=== PATIENT | male | born 1985 | race Caucasian/White ===

== ENCOUNTER 2019-05-26 01:00 | Day surgery (SDC) | payer OTHER, SELFPAY ==
[2019-05-25 09:42] VITALS: BMI 27.1
[2019-05-26] VITALS (9 sets, daily range): BP systolic 132–151; BP diastolic 78–97; PULSE 82–103; RESP 10–20; TEMP 36.1–37.4; O2SAT 96–100
--- NOTE | 2019-05-26 10:04 | WPDANESEPP ---
Anes - Eval Pre Procedure Procedure: Operation Date: 05/26/19 12:30 Proposed Procedures p Left Radical Orchiectomy, Inguinal Approach - Zachary Coleman MD Date/Time: 05/26/19 10:04 Pre Op Diagnosis: Testicular Mass Patient Data Age: 33 Gender: M Height: 1.88 m Weight: 95.71 kg Allergies Allergy/AdvReac Type Severity Reaction Status Date / Time erythromycin base Allergy FEVER, Verified 05/25/19 09:43 HIVES Sulfa (Sulfonamide Allergy FEVER, Verified 05/25/19 09:43 Antibiotics) HIVES Home Medications Medication Instructions Recorded Confirmed Type ibuprofen 800 mg PO DIRECTED PRN 05/25/19 05/25/19 History Patient hx anesthesia problems: post op nausea/vomiting (STATES LASTED 24 HOURS) Family hx anesthesia problems: none Exam Day of Procedure 05/26/19 10:04
[2019-05-26] MEDS: LACTATED RINGERS 1,000 ML 30 ML IV CONT (10:59)
[2019-05-26] MEDS: SCOPOLAMINE 1.5 MG PATCH TRANSDERM (11:33)
--- NOTE | 2019-05-26 12:02 | WPDHPUPDATE1 ---
History and Physical Update Update Date/Time: 05/26/19 12:02 History and Physical has been reviewed, including an updated exam of the patient. There are NO changes in the patient's condition. Risks, benefits, and alternatives have been discussed and questions answered. Patient agrees to proceed with procedure.
--- NOTE | 2019-05-26 14:21 | WPDANESEPPF ---
Anes - Initial Pre Proc Eval Procedure: Operation Date: 05/26/19 12:30 Proposed Procedures p Left Radical Orchiectomy, Inguinal Approach - Zachary Coleman MD Date/Time: 05/26/19 14:21 Surgeon: Zachary Coleman MD Pre Op Diagnosis: Testicular Mass Patient Data Age: 33 Gender: M Height: 1.88 m Weight: 94.5 kg Last Vital Signs Temp 37.4 C 05/26/19 11:29 Pulse 82 05/26/19 11:29 Resp 20 05/26/19 11:29 BP 132/79 05/26/19 11:29 Pulse Ox 100 05/26/19 11:29 Allergies Allergy/AdvReac Type Severity Reaction Status Date / Time erythromycin base Allergy FEVER, Verified 05/25/19 09:43 HIVES Sulfa (Sulfonamide Allergy FEVER, Verified 05/25/19 09:43 Antibiotics) HIVES Home Medications Medication Instructions Recorded Confirmed Type ibuprofen 800 mg PO DIRECTED PRN 05/25/19 05/25/19 History Patient hx anesthesia problems: post op nausea/vomiting (STATES LASTED 24 HOURS) Family hx anesthesia problems: none Anes - Eval Final PreProcedure Day of Procedure 05/26/19 14:21 Patient weight: overweight Heart: regular rate and rhythm Lungs: clear to auscultation and normal air movement Airway: Mallampati scale class II Neurological: alert and oriented Last oral intake: >/= 8 hours ASA classification: II Emergent: no Anesthetic plan: proceed Anesthesia type and monitoring: general LMA and standard monitoring Informed Consent: The patient's anesthetic plan and its attendant risks and benefits were discussed with the patient/family/POA. Questions were solicited and answers provided to the satisfaction of the patient/family/POA.
[2019-05-26] MEDS: ceFAZolin 2 GM/D5W 50 ML 2 GM/50 ML BAG IVPB (15:03)
--- NOTE | 2019-05-26 15:46 | P.OP_ITS ---
Procedure Note - Detailed Date of procedure: 05/26/19 Pre-op diagnosis: Testicular Mass Post-op diagnosis: same Procedure performed: Left radical orchiectomy Description of procedure: Patient was taken to the operative suite and correctly identified. Once anesthesia was obtained he was prepped and draped usual sterile fashion. An inguinal incision was made carried down through the appropriate layers to the external oblique fascia. This was incised along its fibers. The ilioinguinal nerve was visualized and spared. The cord was isolated. Testes was then brought into the operative field. The cord had been dissected all the way up to the internal inguinal ring. The vas was isolated transected and ligated using 2 0 Vicryl. We then isolated the vascular structures of the cord in 2 separate right angles. 0 Prolene was used to suture ligate these structures. A long tail was left. They were then placed in the internal ring. Hemostasis was adequate at this point time. The ilioinguinal nerve again was visualized at all times. External oblique fascia was closed using 2 0 Vicryl in interrupted fashion. Transversus fascia was closed using 2 0 chromic. Skin was closed using a subcuticular closure. Incision was anesthet ized 1% lidocaine. He is taken recovery room stable condition. He will follow up in 1-2 weeks for discussion of path report Anesthesia: GLMA Surgeon: Zachary Coleman MD Drains: No Packing: No Pathology: yes Complications: No immediate complications Condition: stable Disposition: PACU
== END 2019-05-26 18:10 | disposition home or self-care (01) ==
PROVIDERS: Visit Provider Urology
PROC: (CPT 54520; principal; 2019-05-26 12:30)
DX: C62.12 Malignant neoplasm of descended left testis (principal)
CPT/HCPCS: 54530; 88305; 88309; A9270; J0690; J1100; J2250; J2405; J2704; J3010; J7120